=== PATIENT | female | born 1965 | race Caucasian/White ===

== ENCOUNTER 2016-11-14 17:03 | Observation (INO) | payer OTHER ==
[~2016-11-14] VITALS: Ht 160 cm; Wt 56.7 kg
[~2016-11-14 17:03] MED LIST: CIPROFLOXACIN500 M1 PO; TYLENOL PM1 CAPLET PO
[2016-11-14 17:29] LABS: POINT-OF-CARE METER ID UU14100415
[2016-11-14 17:43] LABS: BASOPHIL COUNT 0.1 K/uL (0-0.1); EOSINOPHIL COUNT 0.2 K/uL (0-0.3); HEMATOCRIT 40.6 % (36.0-46.0); IMMATURE GRANULOCYTE (%) 0.3 % (0.0-0.7); INSTRUMENT ABS NEUTROPHIL CT 5.8 K/uL; LYMPHOCYTE COUNT 0.6 K/uL (1.0-2.8); MCH 32.1 PG (29.0-34.0); MCHC 33.5 G/DL (30.0-36.0); MCV 95.8 FL (83-99); MEAN PLAT.VOLUME 10.7 uM^3 (9.5-12.4); MONOCYTE (%) 4.8 % (3-12); MONOCYTE COUNT 0.3 K/uL (0-0.8); NEUTROPHIL COUNT 5.8 K/uL (1.8-6.4); PLATELET COUNT 143 K/uL (156-360); RBC DIS.WIDTH-CV 11.9 % (11.8-14.6); RBC DIS.WIDTH-SD 41.6 % (39-53); RED BLOOD COUNT 4.24 M/uL (3.80-5.20)
[2016-11-14 17:55] LABS: AMYLASE 133 IU/L (1-118); CHLORIDE 103 mEq/L (99-109); POTASSIUM 4.1 mEq/L (3.7-5.4); SODIUM 140 mEq/L (136-147)
[2016-11-14 17:57] LABS: GLUCOSE 116 mg/dL (70-99); PROTHROMBIN TIME 10.3 (9.2-11.2); PTT 24.2 (25-32)
[2016-11-14 17:58] LABS: ANION GAP 11 MEQ/L (2-14)
[2016-11-14 18:00] LABS: SERUM ETHYL ALCOHOL < 10 mg/dL
[2016-11-14 18:01] LABS: GFR ESTIMATE (CALCULATED) > 59 mL/min/; UREA NITROGEN (BUN) 11 mg/dL (9-23)
[2016-11-14 18:04] LABS: LIPASE 50 U/L (1.0-51.0)
[2016-11-14 18:07] LABS: TROP-I INTERPRETATION NEGATIVE; TROPONIN-I < 0.01 ng/mL (0.0-0.30)
[2016-11-14 18:11] LABS: QUANTITATIVE HCG < 4.0 MIU/ML
[2016-11-14] MEDS ORDERED: TYLENOL PM1 CAPLET PO (18:45)
[2016-11-14 19:00] LABS: CREATINE KINASE 110 IU/L (1-294)
[2016-11-14 20:34] LABS: Estimated Average Glucose 108 mg/dL (70-123); HEMOGLOBIN A1c (GLYCOHEMOGLOB) 5.4 % HGB (Below 5.7)
[2016-11-14 20:52] LABS: HDL CHOLESTEROL 113 MG/DL (Desirable>=50); LDL CHOLESTEROL 83 mg/dL (Desirable<100); NON-HDL CHOLESTEROL 94 mg/dL (Desirable<160); TOTAL CHOLESTEROL 207 mg/dL (Desirable<200); TRIGLYCERIDES 57 MG/DL (Normal: <150)
[2016-11-14 21:05] VITALS: BP 107/58
[2016-11-14 22:22] LABS: ADD MIUA? NO; BILIRUBIN NEGATIVE; BLOOD NEGATIVE; COLOR YELLOW ((YELLOW)); GLUCOSE (STRIP) NEGATIVE; KETONES NEGATIVE; LEUKOCYTES NEGATIVE; NITRITE NEGATIVE; PROTEIN (STRIP) NEGATIVE; UCUL ADDED? NO; UROBILINOGEN 0.2 MG/DL (0.2-1.0)
[2016-11-14 22:35] LABS: SPECIFIC GRAVITY 1.058 (1.000-1.030)
[2016-11-14 22:45] LABS: ADD MEDTOX COMMENT Y; AMPHETAMINE NEGATIVE (500 ng/mL); BARBITURATES NEGATIVE (200 ng/mL); BENZODIAZEPINES PRESUMPTIVE POSITIVE (150 ng/mL); COCAINE NEGATIVE (150 ng/mL); INTERNAL CONTROLS VALID? YES; METHADONE NEGATIVE (200 ng/mL); METHAMPHETAMINE NEGATIVE (500 ng/mL); OPIATES (MORPHINE) NEGATIVE (100 ng/mL); OXYCODONE NEGATIVE (100 ng/mL); PHENCYCLIDINE NEGATIVE (25 ng/mL); PROPOXYPHENE NEGATIVE (300 ng/mL); THC CANNABINOIDS NEGATIVE (50 ng/mL); TRICYCLIC ANTIDEPRESSANTS NEGATIVE (300 ng/mL)
[2016-11-14 23:29] LABS: BENZODIAZEPINES QUANT VALUE 0 NG/ML; BENZODIAZEPINES, URINE SCREEN Negative (200 ng/mL)
[2016-11-14 23:43] VITALS: BP 110/64
[2016-11-15 03:33] VITALS: BP 115/72
[2016-11-15 07:35] VITALS: BP 117/61
[2016-11-15 11:12] VITALS: BP 123/64
[2016-11-15 14:13] VITALS: BP 102/57
[2016-11-15] MEDS ORDERED: KEPPRA XR500 MG PO (15:38)
[2016-11-15] MEDS ORDERED: FOLIC ACID1 MG PO (15:41)
[2016-11-15] MEDS ORDERED: Thiamine,Vitamin B1 PO (15:41)
== END 2016-11-15 18:09 | disposition home or self-care (01) ==
LOC: EME 17:03 → EDOF 19:33 → 5SOUTH 19:33
PROVIDERS: Emergency Medicine; Physician Assistant Medical
DX: G40.909 Epilepsy, unspecified, not intractable, without status epilepticus (principal); G43.909 Migraine, unspecified, not intractable, without status migrainosus; F10.10 Alcohol abuse, uncomplicated; F17.200 Nicotine dependence, unspecified, uncomplicated; R47.81 Slurred speech; R29.810 Facial weakness; Z79.82 Long term (current) use of aspirin
CPT/HCPCS: 70450; 70496; 70498; 70551; 71010; 80048; 80061; 80306 90; 81003; 82150; 82550; 82948; 83036; 83690; 83735; 84484; 84702; 84999; 85025; 85610; 85730; 86900; 86901; 93005; 99281; 99285; G0378; G0480; J1650; J2060; J2405; J3411; J7030